=== PATIENT | female | born 1975 | race Caucasian/White ===

== ENCOUNTER 2019-10-26 07:56 | Day surgery (SDC) | payer OTHER ==
[2019-10-23 10:50] LABS: HEMATOCRIT 38.5 % (36.0-47.0); HEMOGLOBIN 13.2 g/dL (12.0-15.5); MEAN CORPUSCULAR HEMOGLOBIN 33.8 pg (27.0-33.4); MEAN CORPUSCULAR HGB CONC 34.4 g/dL (32.0-36.0); MEAN CORPUSCULAR VOLUME 98 fl (80-97); PLATELET COUNT 262 10^3/uL (150-450); RED BLOOD COUNT 3.92 10^6/uL (3.72-5.28); RED CELL DISTRIBUTION WIDTH 13.9 % (11.5-14.0)
[2019-10-23 10:58] LABS: APPEARANCE,URINE CLOUDY; BILIRUBIN,URINE NEGATIVE (NEGATIVE); COLOR,URINE YELLOW; GLUCOSE, URINE NEGATIVE (NEGATIVE); KETONES,URINE NEGATIVE (NEGATIVE); LEUKOCYTE ESTERASE,URINE SMALL (NEGATIVE); NITRITE,URINE NEGATIVE (NEGATIVE); PROTEIN,URINE NEGATIVE (NEGATIVE); URINE SPECIFIC GRAVITY 1.021; UROBILINOGEN,URINE NEGATIVE mg/dL (<2.0)
[~2019-10-26 07:56] MED LIST: LACTATED RINGERS 1000 ML IV PRN; LIDOCAINE 0.5% INJ-PF (5 MG/ML) 50 ML SDV SUBCUT PRN
[2019-10-26] MEDS ORDERED: FAMOTIDINE INJ/PF 20 MG/2 ML SDV IV ONE (08:46)
[2019-10-26] MEDS ORDERED: SCOPOLAMINE HYDROBROMIDE 1.5 MG PATCH.TD72 ONE (08:46)
[2019-10-26] MEDS ORDERED: MIDAZOLAM 2 MG/2 ML INJ ONE ×2 (08:58→10:09)
[2019-10-26] MEDS ORDERED: LIDOCAINE 1% INJ-PF (10 MG/ML) 30 ML SDV ONE (09:29)
[2019-10-26] MEDS ORDERED: FENTANYL CITRATE INJ/PF 100 MCG/2 ML AMPUL ONE (10:09)
[2019-10-26] MEDS ORDERED: PROPOFOL INJ 200 MG/20 ML VIAL IV ONE (10:10)
[2019-10-26] MEDS ORDERED: FENTANYL CITRATE INJ/PF 100 MCG/2 ML AMPUL IV PRN ×3 (11:06)
[2019-10-26] MEDS ORDERED: MEPERIDINE HCL/PF INJ 25 MG/1 ML DISP.SYRIN IV PRN (11:06)
[2019-10-26] MEDS ORDERED: OXYCODONE-ACETAMINOPHEN 5-325 MG TABLET PO PRN ×4 (11:06→12:53)
[2019-10-26] MEDS ORDERED: PROMETHAZINE HCL INJ 25 MG/1 ML VIAL IV PRN ×2 (11:06)
[2019-10-26] MEDS ORDERED: DIPHENHYDRAMINE HCL 50 MG/ML VIAL IV PRN (11:06)
[2019-10-26] MEDS: FENTANYL CITRATE INJ/PF 100 MCG/2 ML AMPUL ONE ×2 (11:57→12:02)
--- NOTE | 2019-10-26 12:05 | Operative Report ---
Operative Report DATE OF SURGERY: 10/26/19 PREOPERATIVE DIAGNOSIS: abnormal uterine bleeding, undesired fertility POSTOPERATIVE DIAGNOSIS: same OPERATION: Laparoscopic tubal cauterization with NovaSure ablation and hysteroscopy SURGEON: SIOMARA LEDESMA 1ST SHADOWGRAPH SCALE OPERATOR: PJ RICAHRD ANESTHESIA: GA COMPLICATIONS: None ESTIMATED BLOOD LOSS: 20 cc INTRAOPERATIVE FINDINGS: 10-week uterus normal tubes and ovaries mild pelvic adhesions PROCEDURE: She was taken to the operating room prepared and draped in a normal sterile fashion in dorsolithotomy position. General conditions and in out cath was performed of approximately 150 cc of clear urine. Speculum was placed into the vagina and the cervix was grasped on the anterior aspect with a single-tooth tenaculum. Hulka clamp was then placed through the cervix for uterine manipulation. Gloves were changed and attention was turned to the upper portion of the case where the umbilical skin incision was made to accommodate a 5 mm port. Needle was introduced through this incision into the peritoneal cavity, confirmation of peritoneal placement was made with sterile free flow of sterile water through the varies needle and an opening pressure of less than 10 mmHg. The abdomen was was inflated with a proximally 1 and half liters of CO2 gas. Needle was removed and a 5 mm port was placed through this incision. The camera was placed through this port and the above findings were noted noted. Patient was placed in steep Trendelenburg. Visualization another 5 mm port was placed in the left lower quadrant. [place] was introduced and the uterus was manipulated for easy access to the fallopian tubes beginning with the right fallopian tube this was grasped with a Kleppinger and it was proximally 3-1/2 cm of the fallopian tube was well coagulated to provide occlusion. Once the fallopian tube was felt to be completely occluded this attention was turned to the left fallopian tube which was also grasped with a Kleppinger and 3-1/2 cm of the fallopian tube was coagulated until complete occlusion was felt to be assured as demonstrated removed the abdomen was deflated through the umbilical port. And the skin was closed at both sites using 4-0 Vicryl. Attention was then turned to the ablation. Sterile speculum was placed back into the vagina and the [place] clamp was removed the single-tooth tenaculum was replaced back onto the anterior aspect of the cervix. The IUD strings were noted quickly and the IUD was removed with gentle traction using ring forceps. The uterus was then sounded to approximately 8-1/2 cm the cervical length was felt to be 2-1/2 cm. The cervix was then dilated to accommodate a 5 mm hysteroscope which was introduced, a lot of fluffy proliferative endometrium was noted. The scope was then removed and the NovaSure device was then deployed. With the above settings and findings noted. The NovaSure device was then removed and the hysteroscope was reintroduced. Good rosa was noted throughout the uterus endometrial cavity and with the exception of a small patch at the fundus that seemed to have not been within the rosa but there was no endometrium cleaning to it at the end of the case. The procedure was then concluded sponge lap and needle counts were correct x2 patient was taken to recovery in stable condition.
[2019-10-26] MEDS: LORAZEPAM INJ 2 MG/1 ML VIAL ONE ×2 (12:09→12:23)
[2019-10-26] MEDS ORDERED: CEFTRIAXONE INJ 1000 MG VIAL ONE (12:19)
[2019-10-26] MEDS ORDERED: ACETAMINOPHEN 1,000 MG/100 ML RTUPB IV ONE (12:35)
[2019-10-26] MEDS ORDERED: RINGERS SOLUTION,LACTATED 1,000 ML IV PRN (12:51)
[2019-10-26] MEDS ORDERED: MORPHINE SULFATE 10 MG/ML INJ IM PRN (12:51)
[2019-10-26] MEDS ORDERED: IBUPROFEN 800 MG TABLET PO PRN (12:52)
[2019-10-26] MEDS ORDERED: OXYCODONE-ACETAMINOPHEN 5-325 MG TABLET ONE (13:15)
[2019-10-26 14:23] VITALS: BP 101/60
[2019-10-26] MEDS ORDERED: KETOROLAC TROMETHAMINE 60 MG/2 ML SDV ONE (14:58)
[2019-10-26] MEDS ORDERED: DEXAMETHASONE SOD PHOSPHATE INJ 4 MG/1 ML VIAL ONE (14:58)
[2019-10-26] MEDS ORDERED: ONDANSETRON HCL INJ/PF 4 MG/2 ML SDV ONE (14:58)
[2019-10-26] MEDS ORDERED: SUCCINYLCHOLINE CHLORIDE INJ 200 MG/10 ML VIAL ONE (14:58)
[2019-10-26] MEDS ORDERED: LIDOCAINE 2% INJ-PF (20 MG/ML) 2 ML AMPUL ONE (14:58)
[2019-10-26] MEDS ORDERED: ROCURONIUM BROMIDE INJ 50 MG/5 ML VIAL IV ONE (14:58)
== END 2019-10-26 14:10 | disposition home or self-care (01) ==
LOC: OROUT 07:56
PROVIDERS: ATTEND Obstetrics & Gynecology
DX: Z30.2 Encounter for sterilization (principal); N93.9 Abnormal uterine and vaginal bleeding, unspecified; M06.9 Rheumatoid arthritis, unspecified; A60.00 Herpesviral infection of urogenital system, unspecified; Z79.899 Other long term (current) drug therapy
CPT/HCPCS: 86900; 86901; 36415 ×2; 86850; 85027; 81025; 81001; 00851; 58670; 58563; J2250; J3490 ×3; J1100; J1885; J3010; J2060; J0330; J0696; J2405; J2704; S0028; J0131; 851